=== PATIENT | male | born 1975 | race Caucasian/White ===

== ENCOUNTER 2016-08-20 19:51 | Emergency (ER) | payer OTHER ==
[2016-08-20] MEDS ORDERED: SODIUM CHLORIDE 0.9% 1,000 ML IV ONE (20:39)
--- NOTE | 2016-08-20 20:42 | ED Physician Documentation ---
PD HPI CHEST PAIN - Stated complaint Stated Complaint: CHEST DISCOMFORT - Chief complaint Chief Complaint: Cardiac - History obtained from History obtained from: Patient, Family - History of Present Illness Timing - onset: Enter time (1529), Today Timing - onset during: Rest Timing - duration: Hours Timing - details: Gradual onset, Still present Pain level max: 6 Pain level now: 2 Quality: Other (A rubbing sensation to the left chest.) Location: Substernal, Left chest Radiation: No: Jaw, Neck, Back, Abdominal, Left upper extremity, Right upper extremity Associated symptoms: Nausea. No: Shortness of air, Diaphoresis, Vomiting, Feeling faint / dizzy, General Weakness, Palpitations, Cough Similar symptoms before: Has not had sx before Recently seen: Not recently seen - Additional information Additional information: 40-year-old male was in his usual state of good health today when at about 3:30 PM he developed a headache. He did not seem to think this was anything significant but his headache was worse than usual for him and he went home and took some Tylenol. This seemed to help somewhat but he developed some pain in the left side of his chest which was a rubbing sensation and he developed some nausea associated with the headache and had some photophobia as well. Most of his symptoms of his headache have resolved and he continues to have this rubbing sensation in his chest. Review of Systems Constitutional: denies: Fever Eyes: reports: Photophobia. denies: Loss of vision, Decreased vision Ears: denies: Ear pain Nose: denies: Rhinorrhea / runny nose, Congestion Throat: denies: Sore throat Cardiac: reports: Chest pain / pressure. denies: Palpitations Respiratory: denies: Dyspnea, Cough GI: denies: Abdominal Pain, Nausea : denies: Dysuria, Frequency Skin: denies: Rash Musculoskeletal: denies: Neck pain, Back pain PD PAST MEDICAL HISTORY - Past Medical History Past Medical History: No - Past Surgical History Past Surgical History: No - Present Medications Home Medications: Ambulatory Orders Medication Instructions Recorded Confirmed No Known Home Medications [No 08/20/16 08/20/16 Known Home Medications] - Allergies Allergies/Adverse Reactions: Allergies Allergy/AdvReac Type Severity Reaction Status Date / Time No Known Drug Allergies Allergy Verified 08/20/16 20:00 - Social History Does the pt smoke?: No Smoking Status: Never smoker Does the pt drink ETOH?: No Does the pt have substance abuse?: No - Immunizations Immunizations are current?: Yes - POLST Patient has POLST: No PD ED PE NORMAL - Vitals Vital signs reviewed: Yes (Hypertensive) - General General: Alert and oriented X 3, No acute distress, Well developed/nourished - HEENT HEENT: Atraumatic, PERRL, EOMI, Pharynx benign, Other (Cerumen obscures both TMs.Mucous membranes are dry.) - Neck Neck: Supple, no meningeal sign, No bony TTP - Cardiac Cardiac: RRR, No murmur - Respiratory Respiratory: No respiratory distress, Clear bilaterally - Abdomen Abdomen: Soft, Non tender - Back Back: No CVA TTP, No spinal TTP - Derm Derm: Normal color, Warm and dry, No rash - Extremities Extremities: No deformity, Normal ROM s pain, No edema - Neuro Neuro: Alert and oriented X 3, 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7 RDW 13.7 Plt Count 231 MPV 9.0 Neut # 3.0 Lymph # 2.4 [place] # 0.8 Eos # 0.3 Baso # 0.0 Absolute Nucleated RBC 0.00 Nucleated RBCs 0.1 Sodium 135 Potassium 3.4 L Chloride 101 Carbon Dioxide 27 Anion Gap 7.0 BUN 14 Creatinine 1.0 Estimated GFR (MDRD) 82 L Glucose 160 H Calcium 9.0 Total Bilirubin 0.7 AST 30 ALT 48 Alkaline Phosphatase 47 Troponin I < 0.04 Total Protein 7.2 Albumin 4.3 Globulin 2.9 Albumin/Globulin Ratio 1.5 Lipase 29 - Rads (name of study) 2 view chest Radiology: Prelim report reviewed (Impression: Normal two-view chest radiography.), EMP read indepedently, See rad report Procedures - IVC sono (time) 2039 Bedside IVC sono: IVC measures (cm) (1.22), IVC collapsed c insp (cm) (complete) , Dehydration (mild) PD MEDICAL DECISION MAKING - ED course Complexity details: reviewed results, re-evaluated patient, considered differential, d/w patient, d/w family ED course: Previously healthy 40-year-old male presents today with a headache at about 3: 30 in the afternoon he has spent several days outside over the fourth and yesterday was spent the day inside but I suspect his condition is mostly related to dehydration. We did interrogate his inferior vena cava and found him to be dehydrated here in the emergency department with heart rate of about 91. He was hypertensive with this mildly. He is administered a liter of saline and a workup of chest pain is undertaken. The patient's blood sugar was elevated at 160 and he assures me that he ate just prior to coming into the emergency department. I suspect this is exhibit display representative of that. He will have follow-up. It does appear that his symptoms today are related to dehydration and we did not discover an alternative etiology for his chest pain. Departure - Departure Disposition: 01 Home, Self Care Clinical Impression: Atypical chest pain, Dehydration Condition: Stable Instructions: ED Chest Pain Atypical Unkn Cause, ED Dehydration Follow-Up: Mei Mckee MD [Primary Care Provider] - Comments: Today in the Emergency Department your blood pressure was elevated. This can happen from the stress of the visit itself, from a current illness or circumstance or from uncontrolled hypertension. If you take blood pressure medications take your usual mediations, have your blood pressure re-checked in an appropriate setting and follow up any elevation with your primary care doctor.
[2016-08-20 21:00] LABS: BASOPHILS % (AUTO) 0.8 %; EOSINOPHILS # (AUTO) 0.3 10^3/uL (0.0-0.7); EOSINOPHILS % (AUTO) 4.2 %; HCT - HEMATOCRIT 45.8 % (42.0-52.0); HGB - HEMOGLOBIN 15.4 g/dL (14.0-18.0); LYMPHOCYTES # (AUTO) 2.4 10^3/uL (1.5-3.5); LYMPHOCYTES % (AUTO) 36.8 %; MEAN CORPUSCULAR HEMOGLOBIN 29.1 pg (27.0-31.0); MEAN CORPUSCULAR HGB CONC 33.7 g/dL (32.0-36.0); MEAN CORPUSCULAR VOLUME 86.2 fL (80.0-94.0); MONOCYTES # (AUTO) 0.8 10^3/uL (0.0-1.0); MONOCYTES % (AUTO) 12.4 %; NEUTROPHILS % (AUTO) 45.8 %; NUCLEATED RED BLOOD CELLS AUTO 0.1 /100WBC; RED BLOOD COUNT 5.31 10^6/uL (4.70-6.10); RED CELL DISTRIBUTION WIDTH 13.7 % (12.0-15.0); UNCORRECTED WHITE BLOOD COUNT 6.5 x10^3/uL; WHITE BLOOD COUNT 6.5 x10^3/uL (4.8-10.8)
[2016-08-20 21:01] LABS: ALBUMIN/GLOBULIN RATIO 1.5 (1.0-2.2); BILIRUBIN,TOTAL 0.7 mg/dL (0.2-1.0); POTASSIUM 3.4 mmol/L (3.5-5.0); TOTAL PROTEIN 7.2 g/dL (6.7-8.2)
[2016-08-20] MEDS ORDERED: POTASSIUM BICARB 25 MEQ TABLET PO STA (21:47)
--- NOTE | 2016-08-20 21:49 | XRAY Preliminary Report ---
Exam: XR Chest 2 View PA/LAT IMPRESSION: Normal 2-view chest radiography. [facility] SITE ID: [id number]
[2016-08-20] MEDS ORDERED: POTASSIUM BICARB 25 MEQ TABLET PO ONE (21:51)
--- NOTE | 2016-08-20 21:53 | XRAY Report ---
EXAM: CHEST RADIOGRAPHY EXAM DATE: 08/20/2016 09:01 PM. CLINICAL HISTORY: Chest pain. COMPARISON: None. TECHNIQUE: 2 views. FINDINGS: Lungs/Pleura: No focal opacities evident. No pleural effusion. No pneumothorax. Normal volumes. Mediastinum: Heart and mediastinal contours are unremarkable. Other: None. IMPRESSION: Normal 2-view chest radiography. [facility] Referring Provider Line: [phone] SITE ID: [id number]
[2016-08-20 22:08] VITALS: BP 120/78
== END 2016-08-20 22:10 | disposition home or self-care (01) ==
LOC: ED 19:51
DX: R07.89 Other chest pain (principal); E86.0 Dehydration; R73.9 Hyperglycemia, unspecified; R03.0 Elevated blood-pressure reading, without diagnosis of hypertension
CPT/HCPCS: 36415; 71020; 80053; 83690; 84484; 85025; 93005; 99284; A9270

== ENCOUNTER 2017-04-19 09:10 | Emergency (ER) | payer OTHER ==
--- NOTE | 2017-04-19 10:26 | XRAY Report ---
EXAM: LEFT KNEE RADIOGRAPHY EXAM DATE: 04/19/2017 10:14 AM. CLINICAL HISTORY: Skiing injury yesterday. Pain. COMPARISON: None. TECHNIQUE: 3 views. FINDINGS: Bones: Apparent linear lucency through the mid to lateral portion of the lateral tibial plateau, seen on the frontal view only. Joints: Large suprapatellar effusion. No dislocation. Soft Tissues: Mild soft tissue swelling. IMPRESSION: Large joint effusion. Possible fracture of the lateral tibial plateau. Consider CT for fu rther evaluation. [facility] Referring Provider Line: [phone] SITE ID: [id number]
--- NOTE | 2017-04-19 10:29 | ED Physician Documentation ---
PD HPI LOWER EXT INJURY - Stated complaint Stated Complaint: KNEE PX - Chief complaint Chief Complaint: Ext Problem - History obtained from History obtained from: Patient - History of Present Illness PD HPI LOW EXT INJURY LOCATION: Left, Knee Type of injury: Twist Where injury occurred: Other (while skiing yesterday) Timing - onset: Yesterday Timing - details: Abrupt onset Associated symptoms: Swelling. No: Weakness, Numbness - Treatment prior to arrival Treatment prior to arrival: Twisted while skiing yesterday. He can walk but with a limp. No other injuries. Declines prescription pain medications. Review of Systems Constitutional: denies: Fever, Chills Cardiac: denies: Chest pain / pressure, Palpitations : denies: Dysuria, Frequency PD PAST MEDICAL HISTORY - Past Surgical History Past Surgical History: No - Present Medications Home Medications: Ambulatory Orders Medication Instructions Recorded Confirmed No Known Home Medications [No 08/20/16 08/20/16 Known Home Medications] - Allergies Allergies/Adverse Reactions: Allergies Allergy/AdvReac Type Severity Reaction Status Date / Time No Known Drug Allergies Allergy Verified 08/20/16 20:00 - Social History Does the pt smoke?: Yes Smoking Status: Current every day smoker Does the pt drink ETOH?: Yes Does the pt have substance abuse?: No - Immunizations Immunizations are current?: Yes - POLST Patient has POLST: No PD ED PE NORMAL - Vitals Vital signs reviewed: Yes - General General: Alert and oriented X 3, No acute distress - Extremities Extremities: Other (Left knee has a moderate effusion and he has severe pain with MCL testing. ACL, PCL, LCL seem intact. There is no bony tenderness of the knee.) - Neuro Neuro: Alert and oriented X 3, Normal speech Results - Vitals Vitals: Vital Signs - 24 hr 04/19/17 04/19/17 09:44 10:58 Temperature 37.5 C Heart Rate 82 78 Respiratory 16 18 Rate Blood Pressure 127/86 H 124/71 O2 Saturation 98 97 Oxygen O2 Source Room air - Rads (name of study) 3v L knee Radiology: EMP read contemporaneously (I felt was nl except effusion, rad read poss tib plateau frx) PD MEDICAL DECISION MAKING - ED course ED course: 41yo with isolated injury L knee from yesterday while skiiing. Clinically c/w MCL sprain. Placed in a long fixed knee brace. Poss tibial plateau frx on xray. I had released him prior to final read but spoke with him by phone and updated, he knows he needs to be NWB up on crutches and understands. Also spoke with his flight surgeon by phone, Mei Mckee MD who will obtain advanced imaging to r/o frx. Departure - Departure Disposition: 01 Home, Self Care Clinical Impression: Sprain of medial collateral ligament of left knee Qualifiers: Encounter type: initial encounter Qualified Code(s): S83.412A - Sprain of medial collateral ligament of left knee, initial encounter Condition: Good Record reviewed to determine appropriate education?: Yes Instructions: ED Sprain Knee Comments: Keep the knee splint on when you are up and around. [place] evaluation and treatment. Ibuprofen as needed for pain. Your blood pressure was elevated today on check into the emergency department. This does not mean that you have hypertension, it is a common phenomenon to come to the emergency department and have elevated blood pressure. I recommend that you see your primary care physician within the week to have it rechecked when you are feeling better. Discharge Date/Time: 04/19/17 10:58
[2017-04-19 10:59] VITALS: BP 124/71
== END 2017-04-19 10:58 | disposition home or self-care (01) ==
LOC: ED 09:10
DX: S83.412A Sprain of medial collateral ligament of left knee, initial encounter (principal); X50.9XXA Other and unspecified overexertion or strenuous movements or postures, initial encounter; Y93.23 Activity, snow (alpine) (downhill) skiing, snowboarding, sledding, tobogganing and snow tubing; R03.0 Elevated blood-pressure reading, without diagnosis of hypertension; F17.200 Nicotine dependence, unspecified, uncomplicated
CPT/HCPCS: 29530; 99283; 99284

== ENCOUNTER 2017-04-24 09:11 | Outpatient (CLI) | payer OTHER ==
--- NOTE | 2017-04-24 19:04 | MRI Report ---
EXAM: LEFT KNEE MRI WITHOUT CONTRAST EXAM DATE: 04/24/2017 10:05 AM. CLINICAL HISTORY: Pain in left knee. COMPARISON: Left knee 3 views 04/19/2017. TECHNIQUE: Multiplanar, multisequence T1-weighted and fluid-sensitive sequences of the knee without c ontrast. Other: None. FINDINGS: Bones: Nondisplaced subcortical fracture at the anterior aspect lateral tibial plateau, 1.9 cm in tra nsverse dimension and 1.9 cm in AP dimension. Articular Cartilage: Unremarkable. Medial Meniscus: The medial meniscus is intact. Lateral Meniscus: The lateral meniscus is intact. Cruciate Ligaments: The anterior and posterior cruciate ligaments are intact. Collateral Ligaments: The medial collateral and lateral collateral ligamentous structures are intact. Tendons: The quadriceps, patellar, semimembranosus, and popliteus tendons are unremarkable. Musculature: No edema or fatty atrophy. Other: Large quantity of fluid at the patellar recesses. No popliteal cyst. No loose bodies. The med ial and lateral retinacula are intact. The subcutaneous tissues and fat pads are unremarkable. IMPRESSION: 1.Negative for a meniscus tear or ACL tear. 2. Nondisplaced fracture at the anterior aspect lateral tibial plateau, 1.9 cm in transverse dimensio n and 1.9 cm in AP dimension. [facility] Referring Provider Line: [phone] SITE ID: [id number]
--- NOTE | 2017-04-24 19:05 | MRI Report ---
EXAM: LEFT ANKLE/HINDFOOT MRI WITHOUT CONTRAST EXAM DATE: 04/24/2017 10:43 AM. CLINICAL HISTORY: Pain in left ankle and joints of left foot. Left ankle sprain August 2016. Lateral an kle pain with physical activity. COMPARISON: None. TECHNIQUE: Multiplanar, multisequence T1-weighted and fluid-sensitive sequences of the ankle/hindfoot without contrast. Other: None. FINDINGS: Bones: No fractures or subluxations. No marrow edema. No bone lesions. Articular Cartilage: Unremarkable. Ligaments: The anterior and posterior tibiofibular, anterior and posterior talofibular, and calcaneof ibular ligaments are intact. The deep and superficial deltoid and spring ligaments are intact. Distal anterior and posterior tibiofibular ligaments are intact. Anterior Tendons: The tibialis anterior, extensor hallucis longus, and extensor digitorum longus tend ons are unremarkable. Medial Tendons: The tibialis posterior, flexor digitorum longus, and flexor hallucis longus tendons a re unremarkable. Lateral Tendons: The peroneus brevis and longus are unremarkable. Achilles Tendon: The Achilles tendon is unremarkable. Musculature: No edema or fatty atrophy. Other: Small fluid collection at the inferior and lateral calcaneocuboid articulation. Skin marker at the site of discomfort corresponding to the calcaneal cuboid articulation. The contents of the sinus tarsi and tarsal tunnel are unremarkable. No plantar fasciitis. Mild subcutaneous edema at the later al ankle (image 29 series 901). Mild increased fluid at the interosseous space, tibiofibular articula tion, 1.3 cm in height (image 23 series 701). There is thickening of the anterior tibiofibular ligame nt (image 30 series 801). Small cyst measuring 1.1 cm in height and 8 mm in AP dimension at the dorsa l lateral aspect of the distal talus. IMPRESSION: 1. There is no cause for lateral midfoot pain identified at the level of the skin marker. 2. Negative for a peroneal tendon tear or tenosynovitis. 3. Intact lateral collateral ligaments. 4. Thickening of the anterior distal tibiofibular ligament with mild increased fluid at the interosse ous space and talofibular articulation. [facility]CUL[facility] Referring Provider Line: [phone] SITE ID: [id number]
== END 2017-04-24 09:12 | disposition home or self-care (01) ==
LOC: DI 09:11
PROVIDERS: ATTEND Pediatrics
DX: M25.572 Pain in left ankle and joints of left foot (principal)

== ENCOUNTER 2018-06-14 10:53 | Outpatient (CLI) | payer OTHER | END 2018-06-14 10:54 | disposition home or self-care (01) | LOC: LAB 10:53 | PROVIDERS: ATTEND Internal Medicine Gastroenterology | DX: K42.9 Umbilical hernia without obstruction or gangrene (principal); Z86.14 Personal history of Methicillin resistant Staphylococcus aureus infection | CPT/HCPCS: 87640 ==

== ENCOUNTER 2018-07-25 06:38 | Day surgery (SDC) | payer OTHER ==
[~2018-07-25 06:38] MED LIST: BUPIVACAINE 0.25% PF 30 ML VIAL ONE
[2018-07-25] MEDS ORDERED: CEFAZOLIN SODIUM IN 0.9 % NACL 2 GM/100 ML BAG IV ONE (06:56)
[2018-07-25] MEDS ORDERED: LACTATED RINGERS 1,000 ML IV ONE ×2 (07:06→10:51)
--- NOTE | 2018-07-25 07:24 | ANESTHESIA ---
Pre-Anesthesia VS, & Labs - Diagnosis Umbilical hernia - Procedure Umbilical hernia repair Height 5 ft 6 in Body Mass Index 27.4 - NPO >8 hours, Other - Lab Results Lab results reviewed: No Home Medications and Allergies No Known Home Medications 08/20/16 Allergies/Adverse Reactions: Allergies Allergy/AdvReac Type Severity Reaction Status Date / Time No Known Drug Allergies Allergy Verified 08/20/16 20:00 Anes History & Medical History - Anesthetic History Anesthesia Complications: reports: No previous complications Family history of Anesthesia Complications: Denies Family history of Malignant Hyperthermia: Denies - Medical History Cardiovascular: reports: None Pulmonary: reports: None Gastrointestinal: reports: GERD Urinary: reports: Kidney stones Neuro: reports: None Musculoskeletal: reports: None Endocrine/Autoimmune: reports: None Blood Disorders: reports: None Skin: reports: None Smoking Status: Current every day smoker Psychosocial: reports: No issues indicated - Surgical History Eyes Ears Nose Throat (EENT): Other (Third molars) Exam General: Alert, Oriented x3, Cooperative Mouth Opening: Greater than 4 Fingerbreadths Neck Mobility: Normal Mallampati classification: I Thyromental Distance: greater than 6 cm Respiratory: Lungs clear Cardiovascular: Regular rate Mental/Cognitive Status: Alert/Oriented X3, Normal for patient Cognitive Status: Within normal limits Plan Anesthesia Type: General Consent for Procedure(s) Verified and Reviewed: Yes Code Status: Attempt Resuscitation ASA classification: 2-Mild systemic disease Is this case an emergency?: No
[2018-07-25] MEDS ORDERED: VANCOMYCIN INJ 1 GM in SODIUM CHLORIDE 0.9% 250 ML IV ONE (08:00)
[2018-07-25] MEDS ORDERED: ceFAZolin 1 GM VIAL ONE (08:37)
[2018-07-25] MEDS ORDERED: LIDOCAINE 1% 50 ML MDV ONE (08:37)
[2018-07-25] MEDS ORDERED: BUPIVACAINE 0.5%-EPI 1:200000 PF 30 ML VIAL ONE (08:37)
[2018-07-25] MEDS ORDERED: ceFAZolin 1 GM VIAL IR ONE (10:26)
[2018-07-25] MEDS ORDERED: BUPIVACAINE 0.5%-EPI 1:200000 PF 30 ML VIAL SUBQ ONE (10:27)
[2018-07-25] MEDS ORDERED: BUPIVACAINE 0.5% PF 30 ML VIAL INFIL ONE (10:27)
[2018-07-25] MEDS ORDERED: MIDAZOLAM 2 MG/2 ML VIAL IVP ONE (10:50)
[2018-07-25] MEDS ORDERED: PROPOFOL 200 MG/20 ML VIAL IVP ONE (10:50)
[2018-07-25] MEDS ORDERED: DEXAMETHASONE 4 MG/ML VIAL IVP ONE (10:50)
[2018-07-25] MEDS ORDERED: ONDANSETRON 4 MG/2 ML VIAL IVP ONE (10:50)
[2018-07-25] MEDS ORDERED: fentaNYL 100 MCG/2 ML VIAL IVP ONE (10:50)
[2018-07-25] MEDS ORDERED: KETOROLAC 30 MG/ML VIAL IVP ONE (10:50)
[2018-07-25] MEDS ORDERED: ONDANSETRON 4 MG/2 ML VIAL IVP PRN (10:53)
[2018-07-25] MEDS ORDERED: IBUPROFEN 600 MG TABLET PO PRN (10:53)
[2018-07-25] MEDS ORDERED: ACETAMINOPHEN 325 MG TABLET PO PRN (10:53)
[2018-07-25] MEDS ORDERED: oxyCODONE 5 MG TABLET PO PRN (10:53)
[2018-07-25] MEDS ORDERED: ACETAMINOPHEN 325 MG TABLET PO ONE (11:53)
[2018-07-25] MEDS ORDERED: oxyCODONE 5 MG TABLET ONE (11:53)
[2018-07-25 12:27] VITALS: BP 110/89
--- NOTE | 2018-07-25 13:08 | OPERATIVE REPORT ---
DATE OF SERVICE: 07/25/2018 Physician: Rob Inman MD PREOPERATIVE DIAGNOSIS: Symptomatic chronically incarcerated umbilical hernia. POSTOPERATIVE DIAGNOSIS: Symptomatic chronically incarcerated umbilical hernia. PROCEDURE PERFORMED: Open repair of same with Ventralex hernia patch. ANESTHESIA: General plus local by Ashely Villavicencio CRNA. SURGEON: Rob Inman MD ESTIMATED BLOOD LOSS: 10 mL COMPLICATIONS: None. FINDINGS: A multi-fenestrated umbilical hernia was present with preperitoneal fat incarcerated withi n the hernia sac. No evidence of strangulation. A 6.5 cm diameter Ventralex hernia patch was placed in the preperitoneal location. INDICATIONS: Patient is a 42-year-old gentleman with a 2-year history of progressively enlarging, in creasingly painful umbilical bulge. Evaluation revealed a partially reducible umbilical bulge consis tent with a chronically incarcerated umbilical hernia. He was advised to undergo elective repair. TECHNIQUE: After informed consent, the patient was taken to the operating room where he was placed u nder general anesthesia. His periumbilical region had been clipped and was prepared with iodoform so lution, following which, a periumbilical block was instituted using a 50:50 combination of 1% lidocai ne plain and 0.5% Marcaine with epinephrine. A total of 30 mL was used. The patient's abdomen was t hen re-prepared with ChloraPrep solution and draped in the usual sterile fashion. A curvilinear ashley sverse incision was made along the inferior edge of the umbilicus and carried down through subcutaneo us tissues. Hemostasis was achieved with electrocautery. The umbilical dermis was dissected off of the underlying hernia sac. The hernia sac was mobilized circumferentially down to the anterior fasci a, which was exposed for a distance of several centimeters circumferentially. The hernia sac was ent ered. Hernia contents, which were seen to be largely preperitoneal fat were reduced. Fenestration w as divided, which allowed complete reduction of the hernia contents into the preperitoneal space. Th e fascial edges were exposed and mobilized circumferentially for a distance of 2 to 3 cm. After hemo stasis was assured, the wound was irrigated with antibiotic solution containing 1 gram cefazolin for 1 liter following which, a 6.[address] hernia patch was soaked in the antibiotic solution and placed in a preperitoneal position. The fascial defect was then reapproximated transversely with in terrupted 0 Ethibond sutures, incorporating the strap with the fascial closure to anchor the mesh in place. Excess hernia strap was excised and discarded. After hemostasis was assured, the wound was a gain irrigated with antibiotic solution, following which wound closure was accomplished in layers usi ng interrupted 2-0 Vicryl to reapproximate the umbilical dermis to the anterior fascia and also reapp roximate the deep subcutaneous tissues. Next, 3-0 Vicryl was used to reapproximate superficial subcu taneous tissues and 4-0 Monocryl subcuticular skin closure, followed by Dermabond completed wound giovanni sure. Preoperative preparation included administration of 2 grams of cefazolin, 1 gram vancomycin an d application of sequential calf compression boots. Anesthesia was terminated and the patient was tr ansferred to the recovery room in satisfactory condition. Sponge and needle counts were correct x2 a nd no drains were used. TD: 07/25/2018 11:08
== END 2018-07-25 06:39 | disposition home or self-care (01) ==
LOC: SDS 06:38
PROVIDERS: ATTEND Internal Medicine Gastroenterology
PROC: 0WUF0JZ Supplement Abdominal Wall with Synthetic Substitute, Open Approach (ICD-10-PCS; principal; 2018-07-25 08:15)
DX: K42.0 Umbilical hernia with obstruction, without gangrene (principal); F17.210 Nicotine dependence, cigarettes, uncomplicated; Z86.14 Personal history of Methicillin resistant Staphylococcus aureus infection; Z86.19 Personal history of other infectious and parasitic diseases
CPT/HCPCS: 49585; A9270; C1781; J0690; J3370; J7120

== ENCOUNTER 2018-07-27 19:02 | Emergency (ER) | payer OTHER ==
[2018-07-27 19:26] LABS: BASOPHILS # (AUTO) 0.1 10^3/uL (0.0-0.1); BASOPHILS % (AUTO) 0.8 %; EOSINOPHILS # (AUTO) 0.1 10^3/uL (0.0-0.7); HGB - HEMOGLOBIN 14.3 g/dL (14.0-18.0); LYMPHOCYTES # (AUTO) 2.5 10^3/uL (1.5-3.5); LYMPHOCYTES % (AUTO) 36.2 %; MEAN CORPUSCULAR HEMOGLOBIN 28.7 pg (27.0-31.0); MEAN CORPUSCULAR HGB CONC 32.9 g/dL (32.0-36.0); MEAN CORPUSCULAR VOLUME 87.1 fL (80.0-94.0); MEAN PLATELET VOLUME 8.9 fL (7.4-11.4); MONOCYTES # (AUTO) 0.8 10^3/uL (0.0-1.0); MONOCYTES % (AUTO) 11.3 %; NEUTROPHILS # (AUTO) 3.5 10^3/uL (1.5-6.6); NEUTROPHILS % (AUTO) 50.7 %; PLT - PLATELET COUNT 244 10^3/uL (130-450); RED BLOOD COUNT 4.98 10^6/uL (4.70-6.10); RED CELL DISTRIBUTION WIDTH 13.4 % (12.0-15.0); WHITE BLOOD COUNT 6.8 x10^3/uL (4.8-10.8)
[2018-07-27 19:37] LABS: CALCIUM 9.3 mg/dL (8.5-10.3); CREATININE 1.1 mg/dL (0.6-1.2)
--- NOTE | 2018-07-27 20:14 | ED Physician Documentation ---
History of Present Illness - Stated complaint Stated Complaint: DIZZINESS/POST PROCEDURE - Chief complaint Chief Complaint: General - History of Present Illness Timing: Today Severity Comments: mild Quality: feeling off, restless Radiates to: none Improved by: nothing Worsened by: nothing Associated symptoms: no nausea, vomiting, no fever. no sob, no chest pain, just feels restless - Additonal information Additional information: Patient is 1 day s/p umbilical hernia surgery and felt really off today all day. Last took oxycodone this morning. States now he feels restless. Reports his pain from surgery is getting better. Review of Systems Ten Systems: 10 systems reviewed and negative Constitutional: reports: Reviewed and negative Cardiac: reports: Reviewed and negative Respiratory: reports: Reviewed and negative GI: reports: Abdominal Pain (at his hernia site, but pain is getting better). denies: Nausea, Vomiting Skin: reports: Reviewed and negative Musculoskeletal: reports: Reviewed and negative Neurologic: reports: Reviewed and negative Psychiatric: reports: Anxiety PD PAST MEDICAL HISTORY - Past Medical History Cardiovascular: None Respiratory: None Neuro: None Endocrine/Autoimmune: None GI: GERD : Kidney stones HEENT: Other Psych: None Musculoskeletal: None Derm: None - Past Surgical History Past Surgical History: No HEENT: Other (Third molars) - Present Medications Home Medications: Ambulatory Orders Medication Instructions Recorded Confirmed Polyethylene Glycol 3350 [Miralax] 17 gm PO DAILY PRN #238 powder 07/25/18 RX: oxyCODONE [Roxicodone] 5 mg PO Q6H PRN #20 tablet 07/25/18 - Allergies Allergies/Adverse Reactions: Allergies Allergy/AdvReac Type Severity Reaction Status Date / Time No Known Drug Allergies Allergy Verified 07/27/18 19:06 - Social History Does the pt smoke?: Yes Smoking Status: Current every day smoker Does the pt drink ETOH?: Yes Does the pt have substance abuse?: No - Immunizations Immunizations are current?: Yes - POLST Patient has POLST: No PD ED PE NORMAL - Vitals Vital signs reviewed: Yes - General General: Alert and oriented X 3, No acute distress, Well developed/nourished - HEENT HEENT: Atraumatic, Moist mucous membranes - Neck Neck: Supple, no meningeal sign - Cardiac Cardiac: RRR, No murmur, No gallop, No rub - Respiratory Respiratory: No respiratory distress, Clear bilaterally - Abdomen Abdomen: Soft, Non distended, Other (umbilical hernia site is bruised but well appearing and healing, mildly tender, no fluctuance, no bleeding ) - Male Male : Deferred - Rectal Rectal: Deferred - Derm Derm: Warm and dry, Other (bruise at umbilical hernia repair site ) - Extremities Extremities: No deformity, No edema - Neuro Neuro: Alert and oriented X 3 Eye Opening: Spontaneous Motor: Obeys Commands Verbal: Oriented GCS Score: 15 - Psych Psych: Normal mood, Normal affect Results - Vitals Vitals: Oxygen O2 Source Room air stable vitals - Labs Labs: Laboratory Tests 07/27/18 07/27/18 19:20 19:20 WBC 6.8 RBC 4.98 Hgb 14.3 Hct 43.4 MCV 87.1 MCH 28.7 MCHC 32.9 RDW 13.4 Plt Count 244 MPV 8.9 Neut # (Auto) 3.5 Lymph # (Auto) 2.5 [place] # (Auto) 0.8 Eos # (Auto) 0.1 Baso # (Auto) 0.1 Absolute Nucleated RBC 0.00 Nucleated RBC % 0.1 Sodium 140 Potassium 3.8 Chloride 102 Carbon Dioxide 25 Anion Gap 13.0 BUN 11 Creatinine 1.1 Estimated GFR (MDRD) 73 L Glucose 124 H Calcium 9.3 mild hyperglycemia, otherwise normal labs PD MEDICAL DECISION MAKING - ED course Complexity details: reviewed results, re-evaluated patient, considered differential, d/w patient ED course: ddx - electrolyte abnormality, dehydration, postoperative bleeding, medication side effect, anxiety 42 y/o M 1 day s/p umbilical hernia surgery. Just feels off today and restless. took oxycodone for pain for a couple of days and has just felt strange today. Difficult to describe per pt. Normal exam and labs except has some bruising at umbilical hernia repair site but no signs of infection. CBC stable and H&H not suggestive of bleeding or blood loss. BMP is normal except mild hyperglycemia. Suspect his symptoms are a medication side effect of the oxycodone, unlikely to be withdrawing this quickly however. Pt is stable for discharge and outpt f.u Advised him to avoid further use of the oxycodone and use tylenol or ibuprofen instead. Departure - Departure Disposition: 01 Home, Self Care Clinical Impression: Medication side effect Condition: Stable Instructions: Post Op Pain Manage Home Meds Follow-Up: Prerna Crooks MD [Primary Care Provider] - Comments: You were evaluated in the ED today for feeling off after surgery. Your labs here today are normal as was your EKG. I suspect your symptoms are a side effect of the oxycodone and just being postoperative. You should use tylenol and ibuprofen instead for pain. Return to the ED if any new, worsening or concerning symptms. Discharge Date/Time: 07/27/18 20:25
[2018-07-27 20:25] VITALS: BP 128/87
== END 2018-07-27 20:25 | disposition home or self-care (01) ==
LOC: ED 19:02
DX: R45.1 Restlessness and agitation (principal); T40.2X5A Adverse effect of other opioids, initial encounter; G89.18 Other acute postprocedural pain; R73.9 Hyperglycemia, unspecified; F17.200 Nicotine dependence, unspecified, uncomplicated
CPT/HCPCS: 36415; 80048; 85025; 93005; 99283

== ENCOUNTER 2018-10-20 21:41 | Emergency (ER) | payer OTHER ==
--- NOTE | 2018-10-20 22:00 | ED Physician Documentation ---
PD HPI DYSPNEA - Stated complaint Stated Complaint: FAST/SLOW HEART - Chief complaint Chief Complaint: Cardiac - History obtained from History obtained from: Patient - History of Present Illness Timing - onset: How many hours ago (past few hours), Today Timing - onset during: Rest Timing - duration: Hours (This evening while resting at home and getting ready for bed he was noticing intermittent palpitations and surgeon and his heart rate just lasting for a few seconds at a time. He denied any consistent elevated heart rate. He does have a heart rate watch and it was showing blips 225 rate but only for a few seconds or so. He did not have anything consistent over minutes or such. He had not noticed anything prior similar. He denies any ches t pain dyspnea lightheadedness or near syncope.) Timing - details: Intermittant Inciting event(s): Other (He states he drinks 6 to 10 cups of coffee a day. He does have couple of beers daily. He denies any energy drinks.). No: URI Associated symptoms: Palpitations. No: Fever, Cough, Wheezing, Chest pain / discomfort, Bilateral edema Similar symptoms before: Has not had sx before Recently seen: Not recently seen Review of Systems Constitutional: denies: Fever Nose: denies: Rhinorrhea / runny nose, Congestion Throat: denies: Sore throat Cardiac: reports: Palpitations (just this evening). denies: Chest pain / pressure, Pedal edema Respiratory: denies: Dyspnea, Cough GI: denies: Abdominal Pain, Nausea, Vomiting Neurologic: denies: Generalized weakness, Focal weakness, Numbness, Near syncope PD PAST MEDICAL HISTORY - Past Medical History Cardiovascular: None Respiratory: None Neuro: None Endocrine/Autoimmune: None GI: GERD : Kidney stones HEENT: Other Psych: None Musculoskeletal: None Derm: None - Past Surgical History Past Surgical History: Yes HEENT: Other - Present Medications Home Medications: Ambulatory Orders Medication Instructions Recorded Confirmed No Known Home Medications 10/20/18 10/20/18 - Allergies Allergies/Adverse Reactions: Allergies Allergy/AdvReac Type Severity Reaction Status Date / Time No Known Drug Allergies Allergy Verified 10/20/18 21:51 - Social History Does the pt smoke?: Yes Smoking Status: Current every day smoker Does the pt drink ETOH?: Yes Does the pt have substance abuse?: No - Immunizations Immunizations are current?: Yes - POLST Patient has POLST: No PD ED PE NORMAL - Vitals Vital signs reviewed: Yes - General General: Alert and oriented X 3, No acute distress, Well developed/nourished - HEENT HEENT: Pharynx benign - Neck Neck: Supple, no meningeal sign, No adenopathy - Cardiac Cardiac: RRR, No murmur - Respiratory Respiratory: Clear bilaterally - Abdomen Abdomen: Soft, Non tender - Derm Derm: Normal color, Warm and dry - Extremities Extremities: No deformity, No tenderness to palpate, Normal ROM s pain, No edema, No calf tenderness / cord - Neuro Neuro: Alert and oriented X 3, No motor deficit, Normal speech Eye Opening: Spontaneous Motor: Obeys Commands Verbal: Oriented GCS Score: 15 - Psych Psych: Normal mood Results - Vitals Vitals: Vital Signs - 24 hr 10/20/18 10/20/18 10/20/18 21:45 22:06 23:08 Temperature 36.0 C L 36.8 C Heart Rate 82 70 73 Respiratory 18 19 20 Rate Blood Pressure 127/91 H 113/61 119/78 O2 Saturation 100 98 95 Oxygen O2 Source Room air - EKG (time done) 21:47 Rate: Rate (enter#) (77) Rhythm: NSR [place]: Normal Intervals: Normal MT QRS: Normal Ischemia: Normal ST segments. No: ST elevation c/w ischemia, ST depression Compare to prior EKG: Old EKG unavailable - Labs Labs: Laboratory Tests 10/20/18 10/20/18 10/20/18 22:01 22:01 22:30 WBC 6.9 RBC 5.59 Hgb 16.1 Hct 49.2 MCV 88.0 MCH 28.8 MCHC 32.7 RDW 12.8 Plt Count 282 MPV 10.3 Neut # (Auto) 3.3 Lymph # (Auto) 2.3 [place] # (Auto) 0.8 Eos # (Auto) 0.4 Baso # (Auto) 0.1 Absolute Nucleated RBC 0.00 Nucleated RBC % 0.0 Sodium 138 Potassium 3.7 Chloride 99 L Carbon Dioxide 30 Anion Gap 9.0 BUN 13 Creatinine 0.9 Estimated GFR (MDRD) 92 Glucose 114 H Calcium 9.6 Magnesium 2.5 Total Bilirubin 1.3 H AST 24 ALT 37 Alkaline Phosphatase 52 Total Protein 8.0 Albumin 4.6 Globulin 3.4 Albumin/Globulin Ratio 1.4 Lipase 34 PD MEDICAL DECISION MAKING - ED course Complexity details: reviewed results (Labs are good. He does have history of significant caffeine use and he is urged to decrease this by half or so.), considered differential (Sounds like benign palpitations. We will have him on the heart monitor. Can check electrolytes and blood count.), d/w patient Departure - Departure Disposition: 01 Home, Self Care Clinical Impression: Palpitations with regular cardiac rhythm Condition: Stable Record reviewed to determine appropriate education?: Yes Instructions: ED Palpitations Follow-Up: Prerna Crooks MD [Primary Care Provider] - Comments: Stay well-hydrated. Decrease your caffeine amounts to half at least of your current level. I presume that you are experiencing palpitations of the heart and caffeine is associated as a trigger cause. Decreasing your caffeine amount should decrease the amount of palpitations but may take a week or so. You noticed some mostly when resting or trying to sleep. Your EKG and blood tests appear normal without any signs of electrolyte problems or obvious heart problem. Your description would be consistent with extra beats called PVCs or PACs. Follow-up with your primary care if you still have the symptoms after several days to week with decreased caffeine use and good hydration. Discharge Date/Time: 10/20/18 23:24
[2018-10-20 22:08] LABS: BASOPHILS # (AUTO) 0.1 10^3/uL (0.0-0.1); BASOPHILS % (AUTO) 1.3 %; EOSINOPHILS # (AUTO) 0.4 10^3/uL (0.0-0.7); EOSINOPHILS % (AUTO) 5.6 %; HGB - HEMOGLOBIN 16.1 g/dL (14.0-18.0); LYMPHOCYTES # (AUTO) 2.3 10^3/uL (1.5-3.5); LYMPHOCYTES % (AUTO) 33.1 %; MEAN CORPUSCULAR HEMOGLOBIN 28.8 pg (27.0-31.0); MEAN CORPUSCULAR HGB CONC 32.7 g/dL (32.0-36.0); MEAN PLATELET VOLUME 10.3 fL (7.4-11.4); MONOCYTES # (AUTO) 0.8 10^3/uL (0.0-1.0); MONOCYTES % (AUTO) 11.6 %; NEUTROPHILS # (AUTO) 3.3 10^3/uL (1.5-6.6); NEUTROPHILS % (AUTO) 48.1 %; PLT - PLATELET COUNT 282 10^3/uL (130-450); RED BLOOD COUNT 5.59 10^6/uL (4.70-6.10); RED CELL DISTRIBUTION WIDTH 12.8 % (12.0-15.0); WHITE BLOOD COUNT 6.9 x10^3/uL (4.8-10.8)
[2018-10-20 22:21] LABS: ALBUMIN 4.6 g/dL (3.2-5.5); ALBUMIN/GLOBULIN RATIO 1.4 (1.0-2.2); BILIRUBIN,TOTAL 1.3 mg/dL (0.2-1.0); CALCIUM 9.6 mg/dL (8.5-10.3); CREATININE 0.9 mg/dL (0.6-1.2)
[2018-10-20] MEDS ORDERED: SODIUM CHLORIDE 0.9% 1,000 ML IV ONE (22:33)
[2018-10-20 23:09] VITALS: BP 119/78
== END 2018-10-20 23:24 | disposition home or self-care (01) ==
LOC: ED 21:41
DX: R00.2 Palpitations (principal); F17.200 Nicotine dependence, unspecified, uncomplicated
CPT/HCPCS: 36415; 80053; 83690; 83735; 85025; 93005; 99284

== ENCOUNTER 2018-11-21 10:09 | Emergency (ER) | payer OTHER ==
--- NOTE | 2018-11-21 12:07 | ED Physician Documentation ---
PD HPI DYSPNEA - Stated complaint Stated Complaint: SOA - Chief complaint Chief Complaint: General - History obtained from History obtained from: Patient - History of Present Illness Timing - onset: Today Timing - details: Abrupt onset Associated symptoms: Chest pain / discomfort, Anxiety. No: Fever, Cough, Hemoptysis, Wheezing, Palpitations, Diaphoresis Similar symptoms before: Has not had sx before Recently seen: Not recently seen - Additional information Additional information: Is a 43-year-old man who presents with complaints that today he felt just a little bit off kind of in a fog he checked his blood pressure was 165/105 so he contacted his electronics recycler who [facility] not have any providers there and the nurse they rechecked his blood pressure was 155/105. He then started experiencing this funny tingling sensation on the left arm and it felt funny walking and had a little bit of chest pain which she actually attributed to his chronic heartburn same sensation in the center of his chest with a burning type sensation. He is concerned because he is been monitoring his blood pressures over the past 3 weeks and they have been higher than normal up to 145/95 been working with his electronics recycler to decrease his sodium intake and increase his exercise and things had been improving. He was back to checking his blood pressure weekly when this morning he checked it because he felt so off. Yesterday he felt fine but he did eat something unusual he made his own chicken wings with hot sauce and drink 2 beers which she is been cutting back on significantly. He does have chronic gastroesophageal reflux that he de scribes as a "tightness and burning" in the center of his chest he said he has been unable to take any medications for that because he is allergic to all of them. He felt mildly short of breath today especially after he was told that his blood pressure was remaining elevated. He felt a little anxious. He has no cardiac history himself but has never had a stress testing. He denied feeling any dizziness although he had a "pounding" mild headache across the posterior occiput and felt a little lightheaded. The headache was a 4 out of 10. Denies any urinary symptoms or peripheral edema. No history of DVT. He does not take daily aspirin although it has been recommended for him. He uses ibuprofen 3-4 times a week for chronic joint pain. Family history is positive for hypertension but no NE. Review of Systems Constitutional: denies: Fever Eyes: reports: Other (Patient reports "monocular" vision with farsightedness and one night and nearsightedness in the other. He has not noted any acute changes.) Ears: denies: Loss of hearing Nose: denies: Rhinorrhea / runny nose Throat: denies: Sore throat Cardiac: reports: Chest pain / pressure. denies: Palpitations, Pedal edema Respiratory: reports: Dyspnea. denies: Cough, Wheezing GI: denies: Abdominal Pain, Nausea, Vomiting, Diarrhea : denies: Dysuria, Frequency Skin: denies: Rash Musculoskeletal: reports: Joint pain (Chronic) Neurologic: reports: Headache. denies: Generalized weakness, Focal weakness, Numbness, Syncope PD PAST MEDICAL HISTORY - Past Medical History Cardiovascular: None Respiratory: None Neuro: None Endocrine/Autoimmune: None GI: GERD : Kidney stones HEENT: Other Psych: None Musculoskeletal: None Derm: None - Past Surgical History Past Surgical History: Yes HEENT: Other - Present Medications Home Medications: Ambulatory Orders Medication Instructions Recorded Confirmed Omeprazole Magnesium [Prilosec] 2.5 mg PO 11/21/18 11/21/18 - Allergies Allergies/Adverse Reactions: Allergies Allergy/AdvReac Type Severity Reaction Status Date / Time ranitidine [From Zantac] Allergy Edema Verified 11/21/18 10:14 - Social History Does the pt smoke?: Yes Smoking Status: Current every day smoker Does the pt drink ETOH?: Yes Does the pt have substance abuse?: No - Immunizations Immunizations are current?: Yes - POLST Patient has POLST: No PD ED PE NORMAL - Vitals Vital signs reviewed: Yes - General General: Alert and oriented X 3, No acute distress, Well developed/nourished - HEENT HEENT: Atraumatic, PERRL, EOMI, Moist mucous membranes, Pharynx benign - Neck Neck: Supple, no meningeal sign, No adenopathy, Thyroid normal - Cardiac Cardiac: RRR, No murmur, Strong equal pulses - Respiratory Respiratory: No respiratory distress, Clear bilaterally - Abdomen Abdomen: Normal bowel sounds, Soft, Non tender, Non distended, No organomegaly - Derm Derm: Normal color, Warm and dry, No rash - Extremities Extremities: No deformity, No edema - Neuro Neuro: Alert and oriented X 3, destination imagination coordinator 2-12 intact, No motor deficit, No sensory deficit, Normal speech - Psych Psych: Normal mood, Normal affect Results - Vitals Vitals: Oxygen O2 Source Room air - Labs Labs: Laboratory Tests 11/21/18 11/21/18 11/21/18 12:28 12:40 12:40 WBC 7.2 RBC 5.31 Hgb 15.2 Hct 46.6 MCV 87.8 MCH 28.6 MCHC 32.6 RDW 12.5 Plt Count 275 MPV 10.2 Neut # (Auto) 4.8 Lymph # (Auto) 1.6 [place] # (Auto) 0.7 Eos # (Auto) 0.1 Baso # (Auto) 0.1 Absolute Nucleated RBC 0.00 Nucleated RBC % 0.0 Sodium 138 Potassium 4.3 Chloride 100 L Carbon Dioxide 27 Anion Gap 11.0 BUN 13 Creatinine 0.9 Estimated GFR (MDRD) 91 Glucose 105 H Calcium 9.1 Troponin I High Sens 2.4 Urine Color Urine Clarity Urine pH Ur Specific [place] Urine Protein Urine Glucose (UA) Urine Ketones Urine Occult Blood Urine Nitrite Urine Bilirubin Urine Urobilinogen Ur Leukocyte Esterase Ur Microscopic Review Urine Culture Comments 11/21/18 12:50 WBC RBC Hgb Hct MCV MCH MCHC RDW Plt Count MPV Neut # (Auto) Lymph # (Auto) [place] # (Auto) Eos # (Auto) Baso # (Auto) Absolute Nucleated RBC Nucleated RBC % Sodium Potassium Chloride Carbon Dioxide Anion Gap BUN Creatinine Estimated GFR (MDRD) Glucose Calcium Troponin I High Sens Urine Color LIGHT YELLOW Urine Clarity CLEAR Urine pH 7.0 Ur Specific [place] <=1.005 Urine Protein NEGATIVE Urine Glucose (UA) NEGATIVE Urine Ketones NEGATIVE Urine Occult Blood NEGATIVE Urine Nitrite NEGATIVE Urine Bilirubin NEGATIVE Urine Urobilinogen 0.2 (NORMAL) Ur Leukocyte Esterase NEGATIVE Ur Microscopic Review NOT INDICATED Urine Culture Comments NOT INDICATED - Rads (name of study) CXR Radiology: EMP read contemporaneously, See rad report (Neg acute) PD MEDICAL DECISION MAKING - ED course Complexity details: reviewed results, re-evaluated patient, d/w patient ED course: Patient's BUN and creatinine are normal. CBC is normal. Urinalysis has no protein chest x-ray is clear and EKG has no ischemic changes. The patient's blood pressure came down to 128/93. We discussed maintaining his lifestyle changes with increasing the exercise and decreasing his diet. There is no evidence of endorgan damage at this time. He should continue to monitor his blood pressures and consider medication control if he is unable to bring them down below normal. He states understanding and will follow up with his electronics recycler. Departure - Departure Disposition: 01 Home, Self Care Clinical Impression: Elevated blood pressure reading, Atypical chest pain Condition: Good Instructions: ED Chest Pain Atypical Unkn Cause Follow-Up: HARDEEP Dunham [Provider Group] Comments: Continue lifestyle changes with decreasing your sodium intake and increasing her exercise. Continue to monitor your blood pressure weekly and follow-up with your electronics recycler with those numbers regarding whether or not you need medication management for elevated blood pressures. Discharge Date/Time: 11/21/18 14:59
[2018-11-21 12:43] LABS: BASOPHILS # (AUTO) 0.1 10^3/uL (0.0-0.1); BASOPHILS % (AUTO) 1.3 %; EOSINOPHILS # (AUTO) 0.1 10^3/uL (0.0-0.7); EOSINOPHILS % (AUTO) 0.7 %; HGB - HEMOGLOBIN 15.2 g/dL (14.0-18.0); LYMPHOCYTES # (AUTO) 1.6 10^3/uL (1.5-3.5); LYMPHOCYTES % (AUTO) 21.8 %; MEAN CORPUSCULAR HEMOGLOBIN 28.6 pg (27.0-31.0); MEAN CORPUSCULAR HGB CONC 32.6 g/dL (32.0-36.0); MEAN CORPUSCULAR VOLUME 87.8 fL (80.0-94.0); MEAN PLATELET VOLUME 10.2 fL (7.4-11.4); MONOCYTES # (AUTO) 0.7 10^3/uL (0.0-1.0); MONOCYTES % (AUTO) 9.4 %; NEUTROPHILS # (AUTO) 4.8 10^3/uL (1.5-6.6); NEUTROPHILS % (AUTO) 66.5 %; PLT - PLATELET COUNT 275 10^3/uL (130-450); RED BLOOD COUNT 5.31 10^6/uL (4.70-6.10); RED CELL DISTRIBUTION WIDTH 12.5 % (12.0-15.0); WHITE BLOOD COUNT 7.2 x10^3/uL (4.8-10.8)
[2018-11-21 12:54] LABS: CALCIUM 9.1 mg/dL (8.5-10.3); CREATININE 0.9 mg/dL (0.6-1.2)
[2018-11-21 13:02] LABS: BILIRUBIN,URINE NEGATIVE (NEGATIVE); GLUCOSE, URINE (UA) NEGATIVE (NEGATIVE); KETONES,URINE (UA) NEGATIVE (NEGATIVE); LEUKOCYTE ESTERASE, URINE NEGATIVE (NEGATIVE); NITRITE,URINE NEGATIVE (NEGATIVE); OCCULT BLOOD,URINE NEGATIVE (NEGATIVE); PROTEIN,URINE NEGATIVE (NEGATIVE); UROBILINOGEN,URINE 0.2 (NORMAL) E.U./dL (NORMAL)
[2018-11-21 13:04] LABS: CLARITY,URINE CLEAR (CLEAR)
--- NOTE | 2018-11-21 13:53 | XRAY Report ---
Reason: cough Procedure Date: 11/21/2018 Accession Number: [id number] / [id number] Procedure: XR - Chest 2 View X-Ray CPT Code: 00824 FULL RESULT: EXAM: CHEST RADIOGRAPHY EXAM DATE: 11/21/2018 01:27 PM. CLINICAL HISTORY: Cough. COMPARISON: CHEST 2 VIEW PA/LAT 08/20/2016 8:48 PM. TECHNIQUE: 2 views. FINDINGS: Lungs/Pleura: No focal opacities evident. No peribronchial cuffing or interstitial abnormality. No pleural effusion. No pneumothorax. Normal volumes. Mediastinum: Heart and mediastinal contours are unremarkable. Other: None. IMPRESSION: Normal 2-view chest radiography. [facility]
[2018-11-21 14:58] VITALS: BP 112/91
== END 2018-11-21 14:59 | disposition home or self-care (01) ==
LOC: ED 10:09
DX: R07.89 Other chest pain (principal); R03.0 Elevated blood-pressure reading, without diagnosis of hypertension; R51 Headache; K21.9 Gastro-esophageal reflux disease without esophagitis; F17.200 Nicotine dependence, unspecified, uncomplicated
CPT/HCPCS: 36415; 71046; 80048; 81001; 81003; 84484; 85025; 87086; 93005; 99284

== ENCOUNTER 2019-02-27 09:56 | Outpatient (CLI) | payer OTHER ==
[2019-02-28 11:32] VITALS: BP 128/90
--- NOTE | 2019-02-28 11:32 | SLEEP CARE CONSULTATION ---
Information from patient questionnaire entered by Madelaine Escamilla. I have reviewed and concur with the information entered by Madelaine Escamilla. This document represents the service I personally performed and the decisions made by me, Arpit Purvis MD, [facility]. History of Present Illness Reason for Visit: New patient Chief Complaint: reports: Snoring, Other (irregular sleep patters) Duration of Symptoms: 3-4 years snoring, 8-10 for irregular sleep Usual bedtime: 2129 Time it takes to fall asleep: 5-hours Snores at night: Yes Sleeps alone due to snoring: Yes (sometimes) Number of times waking at night: 2 Reasons for waking at night: reports: Bathroom, Other (changing positions, unknown reasons) Toss, Turn, or Twitch while sleeping: Yes Recalls having dreams: Yes (sometimes) Usually gets out of bed at: [id number] Feels refreshed in the morning: Yes (sometimes) Morning headache: Yes (more so now) Sleepy or fatigued during the day: Yes (at times) Ever fallen asleep while driving: No Takes day naps: Yes (sometimes) Dreams during day naps: Yes (sometimes) Prior sleep studies: No Additional HPI information: I had the pleasure of seeing Mr. Riddle today regarding the possibility of him having a sleep disorder. As you know, he is a 43 year old gentleman who complains of loud snore and irregular sleep. He was a submariner. The patient tells me that he normally goes to bed around 9:30 pm, and it takes him approximately 5 - 60 minutes to fall asleep. He has been told that he snores loudly and irregularly at night. He has never been observed to stop breathing in his sleep. His can still sleep in the same bed. He can recall waking up on the average of 2 times during the night. Most of the time he wakes up because of having to use the bathroom. He has never awakened because of his own snoring, choking, or having to gasp for air. There is a lot of tossing and turning in his sleep. He has somniloquy (sleep talking) but not somnambulism (sleep walking). Generally there is no recollection of dreams. In the morning he usually gets up out of the bed around 5:30 a.m. (6:45 am on weekends) not feeling refreshed nor rested. He usually does have a morning headache. During the day he complains of feeling sleepy and fatigued. His score on [place] Sleepiness Scale is 12 out of 24. He has never fallen asleep while driving nor has had any accident due to sleepiness. He usually takes naps during the day on weekends only. Upon falling asleep during the day he denies having vivid dreams. He has never had sleep paralysis, experienced cataplexy or symptoms of restless leg syndrome. He denies having impaired concentration during the day. Subjective Initial [place] Sleepiness Scale score: 12 Past Medical History Past Medical History: reports: Anxiety, GERD Social History The patient's occupation is active . Patient is and lives in [place]. Have you smoked in the past 12 months: Yes Cigarettes per day (20/pack): 10 Years of smokin (off and on) Quit date: 02/2018 Smoking Pack Years: 5.0 Alcohol use: Yes Alcohol amount and frequency: 6 drinks 2 times/week Caffeine use: No Family History Family history of sleep disordered breathing: Yes Family Hx Sleep Apnea: Mother: Sleep apnea - Treated, Father: Snoring Allergies and Home Medications Known drug allergies: Yes (Zantac) Drug allergies reviewed: Yes Home medication list reviewed: Yes (Prilosec) Review of Systems Weight gain over past 5 years: 20-25 Cardiovascular: reports: high blood pressure, palpitations, chest pain Respiratory: denies: shortness of breath, wheeze, sputum production, chronic cough, other Gastrointestinal: reports: heartburn Urinary: denies: incontinence, frequency, urgency, impotence, other Neurological: reports: headaches Psychiatric: reports: anxiety Ear/Nose/Throat: reports: wisdom teeth removed Endocrine: reports: sluggishness Musculoskeletal: reports: joint pain, back pain Immunologic: denies: sneezing, rash, itching, allergies to food or environment, other Physical Exam Vital signs obtained and entered by: Dr. Purvis Blood Pressure: 128/90 Cuff size: regular Heart Rate: 93 O2 Saturation: 97 Height: 5 ft 6.5 in Weight: 170 lb Body Mass Index: 27.0 BMI Classification: Overweight Neck circumference: 15 Mood/affect: normal HEENT: No craniofacial malformation Nostrils: patent to airflow Turbinates: normal Septum: midline Mouth and throat: narrow oropharynx Soft palate: long Hard palate: normal Uvula: normal Uvula visualization: 50% Mallampati Class II Tongue: normal in size Tonsils: small Chin and jaw: normal size and position Neck: normal w/o lymphadenopathy or thyromegaly Heart: regular rate and rhythm Lungs: clear bilaterally Abdomen: soft, non-tender Extremities: no edema or clubbing Neurologic: intact, no focal deficits Impression and Plan IMPRESSION: 1. Obstructive Sleep Apnea-Hypopnea Syndrome, as suggested by history of loud and irregular snoring, frequent awakenings during the night, unrefreshed sleep, morning headache, cognitive impairment, and daytime hypersomnolence. Narrow oropharynx and obesity are common predisposing factors for obstructive sleep apnea-hypopnea syndrome. Pathophysiology of sleep-disordered breathing was discussed. I recommend proceeding to polysomnography to confirm the diagnosis and to assess severity. If he has significant sleep disordered breathing, a manual CPAP titration study will also be performed to find the optimal treatment pressure. I informed the patient of what the sleep studies involve and after some discussion, he agreed to proceed. Plan: 1. Schedule polysomnography + manual CPAP titration study 2. Avoid long distance driving or when feeling sleepy. 3. Avoid alcohol, sedative and muscle relaxant around bedtime. 4. Attempt to lose some weight. 5. Return in 1 to 2 weeks after the study to discuss results and initiate therapy. I spent 100% of this visit face to face with the patient with greater than 50% of this was spent time counseling the patient and coordination of care.
== END 2019-02-27 09:57 | disposition home or self-care (01) ==
LOC: SC 09:56
PROVIDERS: ATTEND Internal Medicine Pulmonary Disease
DX: R06.83 Snoring (principal); G47.8 Other sleep disorders; R51 Headache; R41.89 Other symptoms and signs involving cognitive functions and awareness; G47.10 Hypersomnia, unspecified
CPT/HCPCS: 99203; 99212

== ENCOUNTER 2019-03-03 19:28 | Outpatient (CLI) | payer OTHER | END 2019-03-03 19:29 | disposition home or self-care (01) | LOC: SC 19:28 | PROVIDERS: ATTEND Internal Medicine Pulmonary Disease | DX: G47.8 Other sleep disorders (principal); G47.10 Hypersomnia, unspecified; R51 Headache | CPT/HCPCS: 95810 ==

== ENCOUNTER 2019-03-13 10:18 | Outpatient (CLI) | payer OTHER ==
--- NOTE | 2019-03-13 10:48 | SLEEP CARE CONSULTATION ---
Information from patient questionnaire entered by Madelaine Escamilla. I have reviewed and concur with the information entered by Madelaine Escamilla. This document represents the service I personally performed and the decisions made by me, Arpit Purvis MD, [facility]. History of Present Illness Initial [place] Sleepiness Scale score: 12 Current [place] Sleepiness Scale score: 15 Additional HPI information: HPI: Mr. Riddle returned for follow up of the sleep study he had on 03/03/19. The polysomnography showed that the patient had normal sleep efficiency. The sleep architecture was normal as well. Respiratory monitoring showed no significant sleep disordered breathing (AHI = 2.1) or hypoxia (bryant oxygen saturation of 90%). The few respiratory events occurred mainly during REM sleep. The patient slept mostly supine (supine AHI = 2.2; non-supine = 0.00). Snore was light to moderate in intensity. There was no significant periodic leg movement of sleep. Cardiac rhythm was normal sinus rhythm without significant arrhythmia. No abnormal behavior (parasomnia) observed during the night. The patient was informed of these findings. I explained to him that except for during one supine REM period when he quit breathing a few times, the sleep study was within normal limits. Allergies and Home Medications Drug allergies reviewed: Yes (Zantac) Home medication list reviewed: Yes (Imitrex) Review of Systems Review of systems same as previous: Yes Physical Exam Height: 5 ft 6.5 in Weight: 170 lb Body Mass Index: 27.0 BMI Classification: Overweight Impression and Plan IMPRESSION: 1. Primary Snore (ICD-10 R06.83), light to moderate, but no significant sleep disordered breathing. No treatment is indicated. PLAN: 1. Avoid weight gain. 2. Avoid alcohol consumption near bedtime. 3. Return for follow up on as needed basis. I spent 100% of this visit face to face with the patient with greater than 50% of this was spent time counseling the patient and coordination of care.
== END 2019-03-13 10:19 | disposition home or self-care (01) ==
LOC: SC 10:18
PROVIDERS: ATTEND Internal Medicine Pulmonary Disease
DX: R06.83 Snoring (principal)
CPT/HCPCS: 99212; 99213